=== PATIENT | female | born 1985 | race Caucasian/White ===

== ENCOUNTER 2019-02-03 09:36 | Emergency (ER) | payer SELFPAY ==
--- OUTSIDE RECORDS SUMMARY | ~2019-02-03 | XMS | Encounter Summary ---
Demographics + + + | Address | [address] | | | [place] [address] | + + + | Home Phone | | + + + | Preferred Language | Unknown | + + + | Marital Status | | + + + | Gnosticism Affiliation | 1013 | + + + | Race | Unknown | + + + | Ethnic Group | Unknown | + + + Author + + + | Author | [facility] | | | and [place] | + + + | Organization | [facility] | | | and [place] | + + + | Address | Unknown | + + + | Phone | Unavailable | + + + Support + + + + + | Name | Relationship | Address | Phone | + + + + + | Jozef Lerner | ECON | [address] | | | | [address] [place] | | | | | [address] | | + + + + + Care Team Providers + +------+ + | Care Headmaster/Mistress Name | Role | Phone | + +------+ + | No, Physician | PCP | Unavailable | + +------+ + Reason for Visit + + + | Reason | Comments | + + + | Pelvic Pain | | + + + Encounter Details +--------+ + + + + | Date | Type | Department | Care Team | Description | +--------+ + + + + | 10/20/ | Emergency | [facility] | Joan Myles, | Ruptured ovarian | | 2018 | | [facility] | [facility] [address] | cyst (Primary Dx); | | | | CENTER [address] | [place] | Pelvic pain | | | | [place] | [address] | | | | | [address] | | | | | | [phone] | | | +--------+ + + + + Social History + +-------+ +--------+------+ | Tobacco Use | Types | Packs/Day | Years | Date | | | | | Used | | + +-------+ +--------+------+ | Never Smoker | | | | | + +-------+ +--------+------+ + +---+---+---+ | Smokeless Tobacco: | | | | | Never Used | | | | + +---+---+---+ + + +---------+ + | Alcohol Use | Drinks/Week | oz/Week | Comments | + + +---------+ + | No | | | | + + +---------+ + + + + | Sex Assigned at | Date Recorded | | | | + + + | Not on file | | + + + + + + + | Job Start Date | Occupation | Industry | + + + + | Not on file | Not on file | Not on file | + + + + + + + + | Travel History | Travel Start | Travel End | + + + + + + | No recent travel history available. | + + documented as of this encounter Last Filed Vital Signs + + + + + | Vital Sign | Reading | Time Taken | Comments | + + + + + | Blood Pressure | 93/53 | 10/20/2017 10:31 PM | | | | | PDT | | + + + + + | Pulse | 67 | 10/20/2017 10:31 PM | | | | | PDT | | + + + + + | Temperature | 36.9 C (98.4 F) | 10/20/2017 9:05 PM | | | | | PDT | | + + + + + | Respiratory Rate | 14 | 10/20/2017 9:05 PM | | | | | PDT | | + + + + + | Oxygen Saturation | 99% | 10/20/2017 10:31 PM | | | | | PDT | | + + + + + | Inhaled Oxygen | - | - | | | Concentration | | | | + + + + + | Weight | 86.2 kg (190 lb) | 10/20/2017 9:05 PM | | | | | PDT | | + + + + + | Height | 162.6 cm (5' 4") | 10/20/2017 9:05 PM | | | | | PDT | | + + + + + | Body Mass Index | 32.61 | 10/20/2017 9:05 PM | | | | | PDT | | + + + + + documented in this encounter Medications at Time of Discharge + + + +---------+ + + | Medication | Sig | Dispensed | Refills | Start | End Date | | | | | | Date | | + + + +---------+ + + | FLUoxetine | Take 20 mg by mouth | | 0 | | | | (PROZAC) 20 mg | Daily. Takes prior | | | | | | capsule | to her period every | | | | | | | month. Dose unknown | | | | | + + + +---------+ + + | | Take 1 tablet by | | 0 | | | | HYDROcodone-acetamin | mouth every 6 hours | | | | | | ophen (NORCO) 5-325 | as needed for Pain. | | | | | | mg per tablet | | | | | | + + + +---------+ + + | ibuprofen | Take 800 mg by mouth | | 0 | | | | (ADVIL,MOTRIN) 800 | every 6 hours as | | | | | | MG tablet | needed for Pain. | | | | | + + + +---------+ + + | cefdinir (OMNICEF) | Take 1 capsule by | 20 | 0 | 10/21/19 | | | 300 mg capsule | mouth 2 times daily | capsule | | 18 | 8 | | | for 10 days. | | | | | + + + +---------+ + + documented as of this encounter Plan of Treatment + +------+--------+ + + | Name | Type | Priori | Associated Diagnoses | Date/Time | | | | ty | | | + +------+--------+ + + | ED INFORMATION | KACI | Routin | | 10/20/2017 10:01 PM | | EXCHANGE | | e | | PDT | + +------+--------+ + + documented as of this encounter Procedures + +--------+ + + + | Procedure Name | Priori | Date/Time | Associated Diagnosis | Comments | | | ty | | | | + +--------+ + + + | CBC WITH | STAT | 10/20/2017 | | Results for this | | DIFFERENTIAL | | 9:35 PM | | procedure are in the | | | | PDT | | results section. | + +--------+ + + + | URINALYSIS WITH | STAT | 10/20/2017 | | Results for this | | MICROSCOPIC WITH | | 9:10 PM | | procedure are in the | | CULTURE IF INDICATED | | PDT | | results section. | + +--------+ + + + | HCG, URINE, QUAL | STAT | 10/20/2017 | | Results for this | | | | 9:10 PM | | procedure are in the | | | | PDT | | results section. | + +--------+ + + + documented in this encounter Results CBC with Differential (10/20/2017 9:35 PM PDT) + + + + + + | Component | Value | Ref Range | Performed | Pathologist | | | | | At | Signature | + + + + + + | WBC | 10.7 (H) | 4.3 - 10.4 K/uL | [facility] | | + + + + + + | RBC | 4.86 | 4.12 - 5.30 | [facility] | | | | | M/uL | [facility] | | + + + + + + | Hemoglobin | 14.1 | 12.4 - 15.7 | [facility] | | | | | g/dL | [facility] | | + + + + + + | Hct | 43.8 | 37.7 - 47.0 % | [facility] | | | | [facility] | | + + + + + + | MCV | 90.1 | 82.0 - 97.0 fL | [facility] | | | | [facility] | | + + + + + + | MCH | 29.0 | 27.1 - 32.3 pg | [facility] | | | | [facility] | | + + + + + + | MCHC | 32.2 | 32.0 - 36.9 | [facility] | | | | | g/dL | [facility] | | + + + + + + | RDW-CV | 13.5 | 0.0 - 17.0 % | [facility] | | | | | [facility] | | + + + + + + | Platelet | 225 | 150 - 450 K/uL | [facility] | | | Count | | | [facility] | | + + + + + + | MPV | 10.7 | 9.4 - 12.3 fL | [facility] | | | | | | [facility] | | + + + + + + | % | 64.3 | 42.0 - 76.0 % | [facility] | | | Neutrophils | | | [facility] | | + + + + + + | % | 27.5 | 20.0 - 40.0 % | [facility] | | | Lymphocytes | | | [facility] | | + + + + + + | % Monocytes | 6.6 | 3.0 - 13.0 % | [facility] | | | | | | [facility] | | + + + + + + | % | 0.6 | 0.0 - 7.0 % | [facility] | | | Eosinophils | | | [facility] | | + + + + + + | % Basophils | 0.6 | 0.0 - 2.0 % | [facility] | | | | | [facility] | | + + + + + + | % Immature | 0.4 | 0.0 - 0.5 % | [facility] | | | Granulocyte | | | [facility] | | | s | | | [facility] | | | | | | [facility] | | + + + + + + | Absolute | 6.90 | 2.50 - 8.50 | [facility] | | | Neutrophils | | K/uL | [facility] | [facility] | | [facility] | | + + + + + + | Absolute | 2.95 | 1.00 - 3.80 | [facility] | | | Lymphocytes | | K/uL | [facility] | [facility] | | [facility] | | + + + + + + | Absolute | 0.71 | 0.00 - 0.80 | [facility] | | | Monocytes | | K/uL | [facility] | [facility] | | [facility] | | + + + + + + | Absolute | 0.06 | 0.00 - 0.70 | [facility] | | | Eosinophils | | K/uL | [facility] | [facility] | | + + + + + + | Absolute | 0.06 | 0.00 - 0.20 | [facility] | | | Basophils | | K/uL | [facility] | [facility] | | [facility] | | + + + + + + | Absolute | 0.04 | 0.00 - 0.15 | [facility] | | | Immature | | K/UL | [facility] | | | Granulocyte | | | [facility] | | | s | | | LAB[facility]ATORY | | + + + + + + | % nRBC | 0 | 0 - 0 per 100 | [facility] | | | | | WBC's | [facility] | | | | | | [facility] | | + + + + + + | Absolute | 0.00 | 0.00 - 0.01 | [facility] | | | nRBC | | K/UL | [facility] | | | | | | [facility] | | + + + + + + + + | Specimen | + + | Blood | + + + + + + + | Performing | Address | City/State/Zipcode | Phone Number | | Organization | | | | + + + + + | [facility] | [address] | [place] [address] | [phone] | | [facility] | | | | + + + + + , Urine, Qual (10/20/2017 9:10 PM PDT) + + + + + + | Component | Value | Ref Range | Performed | Pathologist | | | | | At | Signature | + + + + + + | HCG SCREEN, | Negative | Negative | [facility] | | | URINE | | | [facility] | | | | | | [facility] | | + + + + + + + + | Specimen | + + | Urine | + + + + + + + | Performing | Address | City/State/Zipcode | Phone Number | | Organization | | | | + + + + + | [facility] | [address] | [place] [address] | [phone] | | [facility] | | | | + + + + + Urinalysis with Microscopic with Culture if Indicated (10/20/2017 9:10 PM PDT) + + + + + + | Component | Value | Ref Range | Performed | Pathologist | | | | | At | Signature | + + + + + + | Color | Pale Yellow | Pale Yellow, | [facility] | | | | | Yellow | [facility] | [facility] | | + + + + + + | Clarity | Clear | Clear | [facility] | | | | | | [facility] | | + + + + + + | pH, Urine | 6.0 | 5.0 - 7.0 | [facility] | | | | | | [facility] | [facility] | [facility] | | + + + + + + | Specific | 1.010 | 1.003 - 1.030 | [facility] | | | [place] | | | [facility] | [facility] | | + + + + + + | Protein, | Negative | Negative | [facility] | | | Urine | | | [facility] | [facility] | [facility] | | + + + + + + | Blood, | Negative | Negative | [facility] | | | Urine | | | [facility] | [facility] | | + + + + + + | Glucose, | Normal | Normal | [facility] | | | Urine | | | [facility] | | | | | | [facility] | | + + + + + + | Ketones, | Negative | Negative | [facility] | | | Urine | | | [facility] | [facility] | [facility] | | + + + + + + | Bilirubin, | Negative | Negative | [facility] | | | Urine | | | [facility] | [facility] | [facility] | | + + + + + + | Nitrite, | Negative | Negative | [facility] | | | Urine | | | [facility] | | | | | [facility] | | + + + + + + | Leukocyte | Negative | Negative | [facility] | | | Esterase, | | | [facility] | | Urine | | [facility] | | | | | | [facility] | | + + + + + + | Urobilinoge | Normal | 0-1.0 mg/dL | [facility] | | | n, Urine | | | [facility] | | [facility] | | | | | | [facility] | | + + + + + + | WBC UA | None Seen | <=5 /HPF | [facility] | | | | | [facility] | [facility] | [facility] | | + + + + + + | RBC UA | None Seen | <=5 /HPF | [facility] | | | | | [facility] | [facility] | [facility] | | + + + + + + | SQUAMOUS | Moderate (A) | None Seen /LPF | [facility] | | | EPITHELIAL | | | [facility] | | UA | | | [facility] | | | | | | [facility] | | + + + + + + | BACTERIA UA | Few (A) | None Seen /HPF | [facility] | | | | [facility] | [facility] | [facility] | | + + + + + + | URINE | Urine Culture Not | | [facility] | | | COMMENT | Indicated | | [facility] | [facility] | [facility] | | + + + + + + + + | Specimen | + + | Urine - Urine | | specimen obtained by | | clean catch | | procedure (specimen) | + + + + + + + | Performing | Address | City/State/Zipcode | Phone Number | | Organization | | | | + + + + + | [facility] | [address] | [place] [address] | [phone] | | [facility] | | | | + + + + + documented in this encounter Visit Diagnoses + + | Diagnosis | + + | Ruptured ovarian cyst - Primary Other and unspecified ovarian cyst | + + | Pelvic pain | + + documented in this encounter Administered Medications + +--------+ +------+------+------+ | Medication Order | MAR | Action | Dose | Rate | Site | | | Action | Date | | | | + +--------+ +------+------+------+ | cefTRIAXone (ROCEPHIN) | Given | 10/21/19 | 1 g | | | | injection 1 g 1 g, Intravenous, | | 18 9:59 | | | | | ONCE, Guera 10/20/17 at 5, For 1 | | PM PDT | | | | | dose, Indications: Acute | | | | | | | Abdominal Condition | | | | | | + +--------+ +------+------+------+ +---+---+ | | | +---+---+ + +-------+ +-------+---+---+ | ketorolac (TORADOL) injection | Given | 10/21/19 | 30 mg | | | | 30 mg 30 mg, Intravenous, ONCE, | | 18 9:58 | | | | | Guera 10/20/17 at 2144, For 1 dose | | PM PDT | | | | + +-------+ +-------+---+---+ +---+---+ | | | +---+---+ documented in this encounter
--- OUTSIDE RECORDS SUMMARY | ~2019-02-03 | XMS | Encounter Summary ---
Demographics + + + | Address | [address] | | | [place] [address] | + + + | Home Phone | | + + + | Preferred Language | Unknown | + + + | Marital Status | | + + + | Sikh Affiliation | 1013 | + + + | Race | Unknown | + + + | Ethnic Group | Unknown | + + + Author + + + | Author | [facility] | | | and [place] | + + + | Organization | [facility] | | | and [place] | + + + | Address | Unknown | + + + | Phone | Unavailable | + + + Support + + + + + | Name | Relationship | Address | Phone | + + + + + | Jozef Lerner | ECON | [address] | | | | [address], [place] | | | | | [address] | | + + + + + Care Team Providers + +------+ + | Care Scheme Technician Name | Role | Phone | + +------+ + PCP | Unavailable | + +------+ + Encounter Details +--------+ + + + + | Date | Type | Department | Care Team | Description | +--------+ + + + + | 10/29/ | Hospital | [facility] | Candy Crockett MD | | | 2011 | Encounter | [facility] | [address] | | | | | [place] [address] | [place], [place] | | | | | [address] | [address] | | | | | [place] | | | | | | [address] | | | | | | [phone] | | | +--------+ + + + + Social History + +-------+ +--------+------+ | Tobacco Use | Types | Packs/Day | Years | Date | | | | | Used | | + +-------+ +--------+------+ | Never Assessed | | | | | + +-------+ +--------+------+ + + + | Sex Assigned at [...] + + documented as of this encounter Medications at Time of Discharge + + + +---------+ + + | Medication | Sig | Dispensed | Refills | Start | End Date | | | | | | Date | | + + + +---------+ + + | clindamycin | applied to pustular | | 0 | 07/22/19 | | | (CLINDAMAX) 1 % | lesions in groin | | | 12 | 8 | | lotion | | | | | | + + + +---------+ + + | hydrOXYzine | 1 to 2 tablets as | | 0 | 07/22/19 | | | (ATARAX) 25 MG | needed for anxiety. | | | 12 | 8 | | tablet | | | | | | + + + +---------+ + + | minocycline | Take 50 mg by mouth | | 0 | 07/29/19 | | | (DYNACIN) 50 MG | 4 times daily. | | | 12 | 8 | | tablet | | | | | | + + + +---------+ + + | naproxen | 1 to 2 tablets with | | 0 | 07/22/19 | | | (NAPROSYN) 500 mg | food as needed for | | | 12 | 8 | | tablet | pain. | | | | | + + + +---------+ + + documented as of this encounter Plan of Treatment Not on filedocumented as of this encounter Visit Diagnoses Not on filedocumented in this encounter"
--- OUTSIDE RECORDS SUMMARY | ~2019-02-03 | XMS | Encounter Summary ---
Demographics + + + | Address | [address] | | | [place] [address] | + + + | Home Phone | | + + + | Preferred Language | Unknown | + + + | Marital Status | | + + + | Hindu Affiliation | 1013 | + + + | Race | Unknown | + + + | Ethnic Group | Unknown | + + + Author + + + | Author | [facility] | | | and [place] | + + + | Organization | [facility] | | | and [place] | + + + | Address | Unknown | + + + | Phone | Unavailable | + + + Support + + + + + | Name | Relationship | Address | Phone | + + + + + | Jozef Lerner | ECON | [address] | | | | [address], [place] | | | | | [address] | | + + + + + Care Team Providers + +------+ + | Care Sleep Medicine Physician Name | Role | Phone | + +------+ + PCP | Unavailable | + +------+ + Encounter Details +--------+ + + + + | Date | Type | Department | Care Team | Description | +--------+ + + + + | 04/12/ | Abstract | [facility] | [facility]IGRATION [facility] | | | 2012 | | Conversion Location | [facility] | | | | | [phone] | | | +--------+ + + + [...] + + + | Blood Pressure | 118/76 | 07/29/2011 12:00 AM | | | | | PDT | | + + + + + | Pulse | - | - | | + + + + + | Temperature | - | - | | + + + + + | Respiratory Rate | - | - | | + + + + + | Oxygen Saturation | - | - | | + + + + + | Inhaled Oxygen | - | - | | | Concentration | | | | + + + + + | Weight | 91.2 kg (201 lb) | 07/29/2011 12:00 AM | | | | | PDT | | + + + + + | Height | 163.8 cm (5' 4.5") | 07/22/2011 12:00 AM | | | | | PDT | | + + + + + | Body Mass Index | 33.97 | 07/22/2011 12:00 AM | | | | | PDT | | + + + + + documented in this encounter Plan of Treatment Not on filedocumented as of this encounter Visit Diagnoses Not on filedocumented in this encounter
--- OUTSIDE RECORDS SUMMARY | ~2019-02-03 | XMS | Encounter Summary ---
Demographics + + + | Address | [address] | | | [place] [address] | + + + | Home Phone | | + + + | Preferred Language | Unknown | + + + | Marital Status | | + + + | Zoroastrianism Affiliation | 1013 | + + + | Race | Unknown | + + + | Ethnic Group | Unknown | + + + Author + + + | Author | [facility] | | | and [place] | + + + | Organization | [facility] | | | and [place] | + + + | Address | Unknown | + + + | Phone | Unavailable | + + + Support + + + + + | Name | Relationship | Address | Phone | + + + + + | Jozef Lerner | ECON | [address] | | | | | [address] | | | | | [address] | | + + + + + Care Team Providers + +------+ + | Care Cinder Block Mason Name | Role | Phone | + +------+ + PCP | Unavailable | + +------+ + Encounter Details +--------+ + + + + | Date | Type | Department | Care Team | Description | +--------+ + + + + | 09/28/ | Orders Only | [facility] | Gloria Cano | | | 2013 | | [facility] | [address] | | | | | [facility] | [address] | | | | | [address] [place], | [place], [place] | | | | | [place] [address] | [address] | | | | | [phone] | [phone] | | | | | | | | +--------+ + + + [...] Not on filedocumented as of this encounter Procedures + +--------+ + + + | Procedure Name | Priori | Date/Time | Associated Diagnosis | Comments | | | ty | | | | + +--------+ + + + | PAP, LB REFLEX HPV | Routin | 09/28/2013 | | Results for this | | ALL PTH | e | 3:51 PM | | procedure are in the | | | | PDT | | results section. | + +--------+ + + + documented in this encounter Results Pap, Lb Rflx HPV All Pth (09/28/2013 3:51 PM PDT) + + | Specimen | + + | | + + + + + | Narrative | Performed At | + + + | .D: 14 : 00:00am .T: [facility] Cytology Report .PV: [facility] Ordering | EXTERNAL LAB | | Provider Gloria CANO M.D. @W/- X/ MARIS Provider LG - | | | [facility] /W Collected Date [id number] Received | | | Date 20131002 Completed Date 20131002 Specimen | | | Source: Liquid base - cervical Number of Slides: 10 | | | LMP Date: [id number] Menstrual Status Second Half of Cycle | | | Clinical History: Cytopathologic Diagnosis: | | | Negative for Intraepithelial Lesion or Malignancy Specimen | | | Adequacy: Satisfactory for evaluation. Transformation | | | zone component present Marked inflammation Comment: | | | Repeat smear at your discretion. Specimen processed | | | successfully by [employer] Slide Cull Grader, [facility], | | | [facility]. History: [id number] 04/25/02 Within | | | normal limits. [id number] 03/05/02 Within normal | | | limits. [id number] 05/05/01 Within normal limits. | | | [id number] 01/02/01 Within normal limits. | | | [id number] 09/23/99 Within normal limits. Disclaimer | | | The pap smear is not a diagnostic procedure and should not be used | | | as the sole means to detect cervical cancer. It is only a screening | | | procedure to aid in the detection of cervical cancer. Both | | | false-negative and false-positive results have been experienced. | | | User 1 Lab Ordering Provider: | | | Gloria Cano M.D. @W/- X/, [facility] Accession: | | | [id number] # SIGNED BY GLORIA CANO MD, (URBAN)10/04/2013 | | | 04:06PM | | + + + + +---------+ + + | Performing | Address | City/State/Zipcode | Phone Number | | Organization | | | | + +---------+ + + | EXTERNAL LAB | | | | + +---------+ + + documented in this encounter Visit Diagnoses Not on filedocumented in this encounter"
--- OUTSIDE RECORDS SUMMARY | ~2019-02-03 | XMS | Encounter Summary ---
Demographics + + + | Address | [address] | | | [place] [address] | + + + | Home Phone | | + + + | Preferred Language | Unknown | + + + | Marital Status | | + + + | Taoist Affiliation | 1013 | + + + | Race | Unknown | + + + | Ethnic Group | Unknown | + + + Author + + + | Author | [facility] | | | and [place] | + + + | Organization | [facility] | | | and [...] [address] | | | | | [address] | | + + + + + Care Team Providers + +------+ + | Care Senior Manufacturing Engineer Name | Role | Phone | + +------+ + PCP | Unavailable | + +------+ + Encounter Details +--------+ + + + + | Date | Type | Department | Care Team | Description | +--------+ + + + + | 07/05/ | Hospital | [facility] | Javid Marks | | | 2013 | Encounter | [facility] | [address] | | | | | [address] | [address] | | | | | [place], [place] | [place] | | | | | [address] | [address] | | | | | [phone] | [phone] | | | | | | | [...]
--- OUTSIDE RECORDS SUMMARY | ~2019-02-03 | XMS | Clinical Summary ---
Demographics + + + | Address | [address] | | | [place] [address] | + + + | Home Phone | | + + + | Preferred Language | Unknown | + + + | Marital Status | | + + + | Christianity Affiliation | 1013 | + + + | Race | Unknown | + + + | Ethnic Group | Unknown | + + + Author + + + | Author | [facility] | | | and [place] | + + + | Organization | [facility] | | | and [...] [address], [place] | | | | | [address] | | + + + + + Care Team Providers + +------+ + | Care Freezer Person Name | Role | Phone | + +------+ + | No, Physician | PCP | Unavailable | + +------+ + Allergies No Known Allergies Medications + + + +---------+------+------+-------+ | Medication | Sig | Dispensed | Refills | Star | End | Statu | | | | | | t | Date | s | | | | | | Date | | | + + + +---------+------+------+-------+ | | Take 1 tablet by | | 0 | | | Activ | | HYDROcodone-acetamin | mouth every 6 hours | | | | | e | | ophen (NORCO) 5-325 | as needed for Pain. | | | | | | | mg per tablet | | | | | | | + + + +---------+------+------+-------+ | ibuprofen | Take 800 mg by mouth | | 0 | | | Activ | | (ADVIL,MOTRIN) 800 | every 6 hours as | | | | | e | | MG tablet | needed for Pain. | | | | | | + + + +---------+------+------+-------+ | FLUoxetine | Take 20 mg by mouth | | 0 | | | Activ | | (PROZAC) 20 mg | Daily. Takes prior | | | | | e | | capsule | to her period every | | | | | | | | month. Dose unknown | | | | | | + + + +---------+------+------+-------+ Active Problems + + + | Problem | Noted Date | + + + | ANXIETY | 07/29/2011 | + + + | HEADACHE | 07/22/2011 | + + + + + | Overview: ICD-10 Record update | + + + + + | MYALGIA | 07/22/2011 | + + + | FATIGUE | 07/22/2011 | + + + | HEAT INTOLERANCE | 07/22/2011 | + + + | DISTURBANCE OF SKIN SENSATION | 07/22/2011 | + + + Social History + +-------+ [...] recent travel history available. | + + Last Filed Vital Signs + + + [...] | | + + + + + Plan of Treatment + + + + + | Health Maintenance | Due Date | Last Done | Comments | + + + + + | Vaccine: | | | | | Dtap/Tdap/Td (1 - | 3 | | | | Tdap) | | | | + + + + + | Cervical Cancer | | 09/28/2013 | | | Screening (Pap) | 9 | | | + + + + + | Vaccine: Influenza | | | | | (#1) | 9 | | | + + + + + Results Not on filefrom Last 3 Months Insurance +---------+--------+ +--------+ +---------+------+ | Payer | Benefi | Subscriber | Effect | Phone | Address | Type | | | t Plan | ID | geeta | | | | | | / | | Dates | | | | | | Group | | | | | | +---------+--------+ +--------+ +---------+------+ | [place] [id number] | 08/13/19 | [phone] | | [place] | | [place] | 1 | 18-Pre | 9 | | | | | | | sent | | | | +---------+--------+ +--------+ +---------+------+ + +--------+ +--------+ + + | Guarantor Name | Accoun | Relation to | Date | Phone | Billing Address | | | t Type | Patient | of | | | | | | | | | | + +--------+ +--------+ + + | Elvira Lerner | Person | Self | [birth year] | [address] | | [place] | al/[place] | | 1986 | [phone] | [place] [address] | | | matthias | | | 6 (Home) | | + +--------+ +--------+ + + Advance Directives + + + + + | Type | Date Recorded | Patient | Explanation | | | | Wrapper Caser | | + + + + + | Power of | | | | | Dimension Stone Quarry Supervisor | | | | + + + + + | Advance | 10/20/2017 7:46 | | | | Directive | PM | | | + + + + +
--- OUTSIDE RECORDS SUMMARY | ~2019-02-03 | XMS | Encounter Summary ---
Demographics + + + | Address | [address] | | | [place] [address] | + + + | Home Phone | | + + + | Preferred Language | Unknown | + + + | Marital Status | | + + + | Mandaen Affiliation | 1013 | + + + | Race | Unknown | + + + | Ethnic Group | Unknown | + + + Author + + + | Author | [facility] | | | and [place] | + + + | Organization | [facility] | | | [...] [address] [place] | | | | | [address] | | + + + + + Care Team Providers + +------+ + | Care On Site Nurse Name | Role | Phone | + +------+ + PCP | Unavailable | + +------+ + Encounter Details +--------+ + + + + | Date | Type | Department | Care Team | Description | +--------+ + + + + | 10/23/ | Hospital | [facility] | Javid Marks | | | 2013 | Encounter | HOSPITAL MED SURG | [address] | | | | | [address] | [address] | | | | | [place], [place] | [place], [place] | | | | | [address] | [address] | | | | | [phone] | [phone] | | | | | | | [...] | + +--------+ + + + | POC GLUCOSE, | Routin | 10/23/2013 | | Results for this | | RAPIDPOINT | e | 7:32 AM | | procedure are in the | | | | PDT | | results section. | + +--------+ + + + | , SERUM, | Routin | 10/23/2013 | | Results for this | | QUAL | e | 7:03 AM | | procedure are in the | | | | PDT | | results section. | + +--------+ + + + documented in this encounter Results POC Glucose, Rapidpoint (10/23/2013 7:32 AM PDT) + +-------+ + + + | Component | Value | Ref Range | Performed | Pathologist | | | | | At | Signature | + +-------+ + + + | Glucose, | 76 | 70 - 110 mg/dL | EXTERNAL | | | POC | | | LAB | | + +-------+ + + + + + | Specimen | + + | | + + + +---------+ + + | Performing | Address | City/State/Zipcode | Phone Number | | Organization | | | | + +---------+ + + | EXTERNAL LAB | | | | + +---------+ + + , Serum, Qual (10/23/2013 7:03 AM PDT) + + + + + + | Component | Value | Ref Range | Performed | Pathologist | | | | | At | Signature | + + + + + + | HCG | NEGATIVE | NEGATIVE | EXTERNAL | | | QUALITATIVE | | | LAB | | + + + + + + | Internal QC | POSITIVE | POSITIVE | EXTERNAL | | | | | | LAB | | + + + + + + + + | Specimen | + + | | + + + +---------+ + + | Performing | Address | City/State/Zipcode | Phone Number | | Organization | | | | + +---------+ + + | EXTERNAL LAB | | | | + +---------+ + + documented in this encounter Visit Diagnoses Not on filedocumented in this encounter"
--- OUTSIDE RECORDS SUMMARY | ~2019-02-03 | XMS | Encounter Summary ---
Demographics + + + | Address | [address] | | | [place] [address] | + + + | Home Phone | | + + + | Preferred Language | Unknown | + + + | Marital Status | | + + + | Amish Affiliation | 1013 | + + + | Race | Unknown | + + + | Ethnic Group | Unknown | + + + Author + + + | Author | [facility] | | | and [place] | + + + | Organization | [facility] | | | [...] [address], [place] | | | | | [address] | | + + + + + Care Team Providers + +------+ + | Care Manager Workers Compensation Name | Role | Phone | + +------+ + PCP | Unavailable | + +------+ + Encounter Details +--------+ + + + + | Date | Type | Department | Care Team | Description | +--------+ + + + + | 06/23/ | Hospital | [facility] | Livan Parrish MD | | | 2012 - | Encounter | FAMILY EMERGENCY | [address] | | | | | [place] [address] | [place] [address] | | | 06/24/ | | [place] | [phone] | | | 2012 | | [place] | | | | | | [address] | | | | | | [phone] | | | +--------+ + + + [...]
--- OUTSIDE RECORDS SUMMARY | ~2019-02-03 | XMS | Encounter Summary ---
Demographics + + + | Address | [address] | | | [place] [address] | + + + | Home Phone | | + + + | Preferred Language | Unknown | + + + | Marital Status | | + + + | Confucianist Affiliation | 1013 | + + + | Race | Unknown | + + + | Ethnic Group | Unknown | + + + Author + + + | Author | [facility] | | | and [place] | + + + | Organization | [facility] | | | [...] [address] [place] | | | | | [address] | | + + + + + Care Team Providers + +------+ + | Care Drafter Landscape Name | Role | Phone | + +------+ + PCP | Unavailable | + +------+ + Encounter Details +--------+ + + + + | Date | Type | Department | Care Team | Description | +--------+ + + + + | 09/10/ | Hospital | [facility] | Javid Marks | | | 2013 | Encounter | HOSPITAL OBSTETRICS | [address] | | | | | [address] | [address] | | | | | [place], [place] | [place], [place] | | | | | [address] | [address] | | | | | [phone] | [phone] | | | | | | | [...]
--- OUTSIDE RECORDS SUMMARY | ~2019-02-03 | XMS | Encounter Summary ---
Demographics + + + | Address | [address] | | | [place] [address] | + + + | Home Phone | | + + + | Preferred Language | Unknown | + + + | Marital Status | | + + + | Yarsani Affiliation | 1013 | + + + | Race | Unknown | + + + | Ethnic Group | Unknown | + + + Author + + + | Author | [facility] | | | and [place] | + + + | Organization | [facility] | | | and [...] [address], [place] | | | | | [address] | | + + + + + Care Team Providers + +------+ + | Care Practical Nurse Clinical Coordinator Name | Role | Phone | + +------+ + PCP | Unavailable | + +------+ + Encounter Details +--------+ + + + + | Date | Type | Department | Care Team | Description | +--------+ + + + + | 01/05/ | Hospital | [facility] | Adrian Lopes, | | | 2002 - | Encounter | FAMILY EMERGENCY | [address] | | | | [place] [address] | [facility] | | | 01/06/ | [place] | [place] [address] | | | 2002 | | [place], [place] | [phone] | | | | | [address] | | | | | | [phone] | | | +--------+ + + + [...]
--- OUTSIDE RECORDS SUMMARY | ~2019-02-03 | XMS | Encounter Summary ---
Demographics + + + | Address | [address] | | | [place] [address] | + + + | Home Phone | | + + + | Preferred Language | Unknown | + + + | Marital Status | | + + + | Catholic Affiliation | 1013 | + + + | Race | Unknown | + + + | Ethnic Group | Unknown | + + + Author + + + | Author | [facility] | | | and [place] | + + + | Organization | [facility] | | | [...] [address] | | | | | [address] | | + + + + + Care Team Providers + +------+ + | Care Check Cashier Name | Role | Phone | + +------+ + PCP | Unavailable | + +------+ + Encounter Details +--------+ + + + + | Date | Type | Department | Care Team | Description | +--------+ + + + + | 04/23/ | Hospital | [facility] | Javid Marks | | | 2014 | Encounter | HOSPITAL OBSTETRICS | [address] | | | | | [address] | [address] | | | | | [place], [place] | [place], [place] | | | | | [address] | [address] | | | | | [phone] | [phone] | | | | | | | [...]
--- OUTSIDE RECORDS SUMMARY | ~2019-02-03 | XMS | Encounter Summary ---
Demographics + + + | Address | [address] | | | [place] [address] | + + + | Home Phone | | + + + | Preferred Language | Unknown | + + + | Marital Status | | + + + | Presybeterian Affiliation | 1013 | + + + | Race | Unknown | + + + | Ethnic Group | Unknown | + + + Author + + + | Author | [facility] | | | and [place] | + + + | Organization | [facility] | | [...] [address] | | | | | [address] [place] | | | | | [address] | | + + + + + Care Team Providers + +------+ + | Care [employer] Team Member Name | Role | Phone | + +------+ + | No, Physician | PCP | Unavailable | + +------+ + Reason for Visit + + + | Reason | Comments | + + + | Follow-up | | + + + Encounter Details +--------+ + + + + | Date | Type | Department | Care Team | Description | +--------+ + + + + | 10/22/ | Telephone | [facility] | No, Physician | Follow-up | | 2018 | | HOSPITAL EMERGENCY | | | | | | CENTER [address] | | | | | | [address] [place], [place] | | | | | | [address] | | | | | | [phone] | | | +--------+ + + + [...]
--- OUTSIDE RECORDS SUMMARY | ~2019-02-03 | XMS | Encounter Summary ---
Demographics + + + | Address | [address] | | | [place] [address] | + + + | Home Phone | | + + + | Preferred Language | Unknown | + + + | Marital Status | | + + + | Restorationist Affiliation | 1013 | + + + | Race | Unknown | + + + | Ethnic Group | Unknown | + + + Author + + + | Author | [facility] | | | and [place] | + + + | Organization | [facility] | | [...] [address], [place] | | | | | [address] | | + + + + + Care Team Providers + +------+ + | Care Medical Examiner Name | Role | Phone | + +------+ + PCP | Unavailable | + +------+ + Encounter Details +--------+ + + + + | Date | Type | Department | Care Team | Description | +--------+ + + + + | 06/27/ | [facility] | [facility] | Bandar Bajwa MD | | | 2012 | Encounter | FAMILY EMERGENCY | [address] | | | | | [place] [address] | [place], [place] | | | | | [place] | [address] | | | | | [place] | | | | | | [address] | | | | | | [phone] | | | +--------+ + + + [...]
--- OUTSIDE RECORDS SUMMARY | ~2019-02-03 | XMS | Encounter Summary ---
Demographics + + + | Address | [address] | | | [place] [address] | + + + | Home Phone [...] [address] | | | | | [address] [place] | | | | | [address] | | + + + + + Care Team Providers + +------+ + | Care Rod Puller And Coiler Name | Role | Phone | + +------+ + | No, Physician | PCP | Unavailable | + +------+ + Encounter Details +--------+ + + + + | Date | Type | Department | Care Team | Description | +--------+ + + + + | 10/20/ | Emergency | [facility] | | | | 2017 | | HOSPITAL EMERGENCY | | | | | | CENTER [address] | | | | | | [place] | | | | | | [address] | | | | | | [phone] | | | +--------+ + + + [...] | KACI | Routin | | 10/20/2017 6:28 PM | | EXCHANGE | | e | | PDT | + +------+--------+ + + documented as of this encounter Procedures + +--------+ + + + | Procedure Name | Priori | Date/Time | Associated Diagnosis | Comments | | | ty | | | | + +--------+ + + + | ED INFORMATION | Routin | 10/20/2017 | | | | EXCHANGE | e | 6:28 PM | | | | | | PDT | | | + +--------+ + + + +---+--------+ | | | | | Proced | | | ure | | | Note - | | | Jorge, | | | Lab In | | | | | | Hlseve | | | n - | | | 10/20/ | | | 2018 | | | 6:29 | | | PM PDT | | | | | | Format | | | ting | | | of | | | this | | | note | | | might | | | be | | | differ | | | ent | | | from | | | the | | | origin | | | al.JORGE | | | E?NOTI | | | FICATI | | | ON?/ | | | | | | 8 | | | 18:27? | | | JUANCARLOS | | | SON, | | | DENNY | | | | | | G?MRN: | | | | | | [id number] | | | [id number] | | | ecurit | | | y | | | Events | | | No | | | recent | | | | | | Securi | | | ty | | | Events | | | | | | curren | | | tly on | | | | | | fileED | | | Care | | | Guidel | | | inesTh | | | ere | | | are | | | curren | | | tly no | | | ED | | | Care | | | Guidel | | | jhonny | | | in | | | KACI | | | for | | | this | | | patien | | | t. | | | Please | | | check | | | your | | | facili | | | ty's | | | medica | | | l | | | record | | | s | | | system | | | .Crite | | | [place] | | | met 2 | | | | | | Facili | | | ties | | | In 90 | | | DaysCa | | | re | | | Provid | | | ersEDI | | | E has | | | no | | | care | | | provid | | | ers on | | | | | | record | | | at | | | this | | | time. | | | Recent | | | | | | Emerge | | | ncy | | | Depart | | | ment | | | Visit | | | Summar | | | yAdmit | | | Date | | | Facili | | | ty | | | City | | | State | | | Type | | | Major | | | Type | | | Diagno | | | ses or | | | Chief | | | | | | Compla | | | int | | | Aug 9, | | | 2018 | | | [place] | | | [place] | | | [place] | [place] | | | [place] | | | Emerge | | | ncy | | | Emerge | | | ncy | | | | | | Abdomi | | | nal | | | pain | | | Saji | | | 31, | | | 2018 | | | [facility] | | | [facility] | | | mary | | | [facility] | | | [place] | | | | | | [place] | | | [place] | | | Emerge | | | ncy | | | Emerge | | | ncy | | | 0. | | | ABD | | | PAIN | | | Apr | | | 19, | | | 2018 | | | [facility] | | | [facility] | | | mary | | | [facility] | | | nt[place] | | | | | | [place] | | | [place] | | | Emerge | | | ncy | | | Emerge | | | ncy | | | 0. | | | SORE | | | THROAT | | | , | | | FEVER, | | | N/V | | | Recent | | | | | | Inpati | | | ent | | | Visit | | | Summar | | | yNo | | | record | | | ed | | | inpati | | | ent | | | visits | | | . E.D. | | | Visit | | | Count | | | (12 | | | mo.)Fa | | | cility | | | | | | Visits | | | St. | | | [facility] | | | mary | | | Medica | | | l | | | Center | | | -[place] | | | io 2 | | | [place] | | | [facility] | | | | | | Hospit | | | al 1 | | | Total | | | 3 | | | Note: | | | Visits | | | | | | indica | | | te | | | total | | | known | | | visits | | | . | | | PDMP | | | Report | | | PDMP | | | report | | | does | | | not | | | meet | | | criter | | | ia.The | | | above | | | | | | inform | | | ation | | | is | | | provid | | | ed for | | | the | | | sole | | | purpos | | | e of | | | patien | | | t | | | treatm | | | ent. | | | Use of | | | this | | | inform | | | ation | | | beyond | | | the | | | terms | | | of | | | Data | | | Sharin | | | g | | | Memora | | | ndum | | | of | | | Unders | | | tandin | | | g and | | | Licens | | | e | | | Agreem | | | ent is | | | | | | prohib | | | ited. | | | In | | | certai | | | n | | | cases | | | not | | | all | | | visits | | | may | | | be | | | repres | | | ented. | | | | | | Consul | | | t the | | | aforem | | | ention | | | ed | | | facili | | | ties | | | for | | | additi | | | onal | | | inform | | | ation. | | | ? | | | 2018 | | | Collec | | | tive | | | Medica | | | l | | | Techno | | | logies | | | , Inc[employer] | | | - | | | [place] | | | [place] | | | [place], | | | [place] - | | | [email or web address] | | | ollect | | | ivemed | | | icalte | | | [email or web address] | | | | +---+--------+ documented in this encounter Visit Diagnoses Not on filedocumented in this encounter"
--- OUTSIDE RECORDS SUMMARY | ~2019-02-03 | XMS | Encounter Summary ---
Demographics + + + | Address | [address] | | | [place] [address] | + + + | Home Phone | | + + + | Preferred Language | Unknown | + + + | Marital Status | | + + + | Gnosticism Affiliation | 1013 | + + + | Race | Unknown | + + + | Ethnic Group | Unknown | + + + Author + + + | Author | [facility] | | | and [place] | + + + | Organization | [facility] | | [...] [address], [place] | | | | | [address] | | + + + + + Care Team Providers + +------+ + | Care Appellate Law Clerk Name | Role | Phone | + [...] [address] | | | | | [place] [address] | [facility] | | | 01/06/ | [place] | [place] [address] | | | 2004 | | [place], [place] | [phone] | | | | | [address] | | | | | | [phone] | | | +--------+ + + + [...]
--- OUTSIDE RECORDS SUMMARY | ~2019-02-03 | XMS | Encounter Summary ---
Demographics + + + | Address | [address] | | | [place] [address] | + + + | Home Phone | | + + + | Preferred Language | Unknown | + + + | Marital Status | | + + + | Rastafari Affiliation | 1013 | + + + | Race | Unknown | + + + | Ethnic Group | Unknown | + + + Author + + + | Author | [facility] | | | and [place] | + + + | Organization | [facility] | | [...] [address] [place] | | | | | [address] | | + + + + + Care Team Providers + +------+ + | Care Vice President [employer] Name | Role | Phone | + [...] [place] | | | | | | [address] | | | | | | [phone] | | | +--------+ + + + [...]
--- OUTSIDE RECORDS SUMMARY | ~2019-02-03 | XMS | Encounter Summary ---
Demographics + + + | Address | [address] | | | [place] [address] | + + + | Home Phone | | + + + | Preferred Language | Unknown | + + + | Marital Status | | + + + | Yazidi Affiliation | 1013 | + + + | Race | Unknown | + + + | Ethnic Group | Unknown | + + + Author + + + | Author | [facility] | | | and [place] | + + + | Organization | [facility] | | | [...] [address] [place] | | | | | [address] | | + + + + + Care Team Providers + +------+ + | Care Social Media Specialist Name | Role | Phone | + +------+ + PCP | Unavailable | + +------+ + Encounter Details +--------+ + + + + | Date | Type | Department | Care Team | Description | +--------+ + + + + | 04/14/ | [facility] | [facility] | Natasha Bob | | | 2016 | Encounter | HOSPITAL NURSERY | [address] | | | | | [address] | [place] | | | | | [place] | [address] | | | | | [address] | [phone] | | | | | [phone] | | | +--------+ + + + [...]
--- OUTSIDE RECORDS SUMMARY | ~2019-02-03 | XMS | Encounter Summary ---
Demographics + + + | Address | [address] | | | [place] [address] | + + + | Home Phone | | + + + | Preferred Language | Unknown | + + + | Marital Status | | + + + | Latter Day Affiliation | 1013 | + + + | Race | Unknown | + + + | Ethnic Group | Unknown | + + + Author + + + | Author | [facility] | | | and [place] | + + + | Organization | [facility] | | [...] [address] [place] | | | | | [address] | | + + + + + Care Team Providers + +------+ + | Care International Guest Coordinator Name | Role | Phone | + +------+ + PCP | Unavailable | + +------+ + Encounter Details +--------+ + + + + | Date | Type | Department | Care Team | Description | +--------+ + + + + | 10/11/ | [facility] | [facility] | Jerrell Ivan | | | 2002 | Encounter | FAMILY LABOR AND | MD | | | | | [address] | | | | | | [place] | | | | | | [place] | | | | | | [address] | | | | | | [phone] | | | +--------+ + + + [...]
--- OUTSIDE RECORDS SUMMARY | ~2019-02-03 | XMS | Encounter Summary ---
Demographics + + + | Address | [address] | | | [place] [address] | + + + | Home Phone | | + + + | Preferred Language | Unknown | + + + | Marital Status | | + + + | Mandaeism Affiliation | 1013 | + + + | Race | Unknown | + + + | Ethnic Group | Unknown | + + + Author + + + | Author | [facility] | | | and [place] | + + + | Organization | [facility] | | | [...] [address] | | | | | [address] | | + + + + + Care Team Providers + +------+ + | Care Director Of Field Service Name | Role | Phone | + +------+ + PCP | Unavailable | + +------+ + Encounter Details +--------+ + + + + | Date | Type | Department | Care Team | Description | +--------+ + + + + | 09/28/ | Hospital | [facility] | Javid Marks | | | 2013 | Encounter | HOSPITAL LABORATORY | [address] | | | | | [address] | [address] | | | | | [place], [place] | [place], [place] | | | | | [address] | [address] | | | | | [phone] | [phone] | | | | | | | [...] + +--------+ + + + | CBC W/AUTO | Routin | 09/28/2013 | | Results for this | | DIFFERENTIAL | e | 2:43 PM | | procedure are in the | | | | PDT | | results section. | + +--------+ + + + documented in this encounter Results CBC w/ Auto Differential (09/28/2013 2:43 PM PDT) + +-------+ + + + | Component | Value | Ref Range | Performed | Pathologist | | | | | At | Signature | + +-------+ + + + | WBC | 8.6 | 4.3 - 10.4 | EXTERNAL | | | | | 1000/mm3 | LAB | | + +-------+ + + + | RBC | 4.88 | 4.12 - 5.30 | EXTERNAL | | | | | mil/mm3 | LAB | | + +-------+ + + + | HGB, | 13.9 | 12.4 - 15.7 | EXTERNAL | | | External | | g/dL | LAB | | + +-------+ + + + | HCT, | 42.1 | 37.7 - 47.0 % | EXTERNAL | | | External | | | LAB | | + +-------+ + + + | MCV | 86 | 82 - 97 fl | EXTERNAL | | | | | | LAB | | + +-------+ + + + | MCH | 28.5 | 27.1 - 32.3 pg | EXTERNAL | | | | | | LAB | | + +-------+ + + + | MCHC | 33 | 32.0 - 36.9 | EXTERNAL | | | | | g/dL | LAB | | + +-------+ + + + | RDW-CV | 13.9 | <=17.0 % | EXTERNAL | | | | | | LAB | | + +-------+ + + + | RDW-SD | 43 | 34.0 - 57.0 fL | EXTERNAL | | | | | | LAB | | + +-------+ + + + | Platelet | 227 | 150 - 450 | EXTERNAL | | | Count | | 1000/mm3 | LAB | | | Plasma | | | | | + +-------+ + + + | MPV | 11 | 9.4 - 12.3 FL | EXTERNAL | | | | | | LAB | | + +-------+ + + + | % Segmented | 59.1 | 42.0 - 76.0 % | EXTERNAL | | | | | | LAB | | | Neutrophils | | | | | + +-------+ + + + | % | 31.1 | 29.0 - 49.0 % | EXTERNAL | | | Lymphocytes | | | LAB | | + +-------+ + + + | % Monocytes | 8.4 | 3.0 - 13.0 % | EXTERNAL | | | | | | LAB | | + +-------+ + + + | % | 0.9 | 0.0 - 7.0 % | EXTERNAL | | | Eosinophils | | | LAB | | + +-------+ + + + | % Basophils | 0.5 | 0.0 - 2.0 % | EXTERNAL | | | | | | LAB | | + +-------+ + + + | Absolute | 5.05 | 2.50 - 8.50 | EXTERNAL | | | Neutrophils | | 1000/mm3 | LAB | | + +-------+ + + + | Absolute | 2.66 | 1.00 - 3.80 | EXTERNAL | | | Lymphocytes | | 1000/mm3 | LAB | | + +-------+ + + + | Absolute | 0.72 | 0.00 - 0.80 | EXTERNAL | | | Monocytes | | 1000/mm3 | LAB | | + +-------+ + + + | Absolute | 0.08 | 0.00 - 0.70 | EXTERNAL | | | Eosinophils | | 1000/mm3 | LAB | | + +-------+ + + + | Absolute | 0.04 | 0.00 - 0.20 | EXTERNAL | | | Basophils | | 1000/mm3 | LAB | | + +-------+ + + + | SLIDE | NO | | EXTERNAL | | | REVIEWED | | | LAB | | + [...]
--- OUTSIDE RECORDS SUMMARY | ~2019-02-03 | XMS | Encounter Summary ---
Demographics + + + | Address | [address] | | | [place] [address] | + + + | Home Phone | | + + + | Preferred Language | Unknown | + + + | Marital Status | | + + + | Confucianism Affiliation | 1013 | + + + | Race | Unknown | + + + | Ethnic Group | Unknown | + + + Author + + + | Author | [facility] | | | and [place] | + + + | Organization | [facility] | | [...] [address], [place] | | | | | [address] | | + + + + + Care Team Providers + +------+ + | Care Survey Chief Name | Role | Phone | + +------+ + PCP | Unavailable | + +------+ + Encounter Details +--------+ + + + + | Date | Type | Department | Care Team | Description | +--------+ + + + + | 06/03/ | Orders Only | [facility] | Conversion | | | 2003 | [facility] | Transaction, | | | | | LABORATORY [address] | Provider Unknown | | | | | [address] | [phone] | | | | | [address] | | | | | | [phone] | | | +--------+ + + + [...] | + +--------+ + + + | SURGICAL PATHOLOGY | Routin | 06/04/2003 | | Results for this | | EXAM | e | 8:36 AM | | procedure are in the | | | | PST | | results section. | + +--------+ + + + documented in this encounter Results Surgical Pathology Exam (06/04/2003 8:36 AM PST) + + | Specimen | + + | | + + + + + | Narrative | Performed At | + + + | SURGICAL PATHOLOGY REPORT | [facility] | | Date Taken: 06/04/2003 Date Received: | | | 06/05/2003 Completed: 06/06/2003 Physician: Copy to: | | | DIAGNOSIS: Right upper back, lateral: Intradermal nevus. Jensen Thrasher | | | Liz Matos Electronic signature GROSS DESCRIPTION: The | | | specimen labeled "right upper back lateral" is received in formalin | | | and consists of two ovoid rubbery fragments of banda tissue, each | | | measuring 0.6 x 0.5 x 0.4 cm in greatest dimension. One fragment is | | | marked with ink; each fragment is bisected and submitted together in | | | a single block. ([place]) 1: [address] | | [place] [address] or | | | Testing performed at: [facility] | | | Laboratory Ole Shafer M.D., Director [address] [place] [address] [address] | | | [address] [place] [address] | | + + + + + + + + | Performing | Address | City/State/Zipcode | Phone Number | | Organization | | | | + + + + + | [facility] | [address] | [place] [address] | | | [facility] | | | | | LABORATORY | | | | + + + + + | [place] | | | | + + + + + documented in this encounter Visit Diagnoses Not on filedocumented in this encounter
--- OUTSIDE RECORDS SUMMARY | ~2019-02-03 | XMS | Encounter Summary ---
Demographics + + + | Address | [address] | | | [place] [address] | + + + | Home Phone | | + + + | Preferred Language | Unknown | + + + | Marital Status | | + + + | Hoahaoism Affiliation | 1013 | + + + | Race | Unknown | + + + | Ethnic Group | Unknown | + + + Author + + + | Author | [facility] | | | and [place] | + + + | Organization | [facility] | | | [...] [address] | | | | | [address] | | + + + + + Care Team Providers + +------+ + | Care Quickbooks Bookkeeper Name | Role | Phone | + [...] [place], [place] | | | | | [address] | [address] | | | | | [phone] | | | | | | | [...]
--- OUTSIDE RECORDS SUMMARY | ~2019-02-03 | XMS | Encounter Summary ---
Demographics + + + | Address | [address] | | | [place] [address] | + + + | Home Phone | | + + + | Preferred Language | Unknown | + + + | Marital Status | | + + + | Yazidi Affiliation | 1013 | + + + | Race | Unknown | + + + | Ethnic Group | Unknown | + + + Author + + + | Author | [facility] | | | and [place] | + + + | Organization | [facility] | | [...] [address]OX | | | | | [address] | | | | | [address] | | + + + + + Care Team Providers + +------+ + | Care Lithographic Retoucher Apprentice Name | Role | Phone | + +------+ + PCP | Unavailable | + +------+ + Encounter Details +--------+ + + + + | Date | Type | Department | Care Team | Description | +--------+ + + + + | 10/25/ | Hospital | [facility] | Jerrell Ivan | | | 2002 - | Encounter | [facility] | MD | | | | | [address] | | | | 10/26/ | [address] | | | | 2002 | | [place] | | | | | | [address] | | | | | | [phone] | | | +--------+ + + + [...]
--- OUTSIDE RECORDS SUMMARY | ~2019-02-03 | XMS | Encounter Summary ---
Demographics + + + | Address | [address] | | | [place] [address] | + + + | Home Phone | | + + + | Preferred Language | Unknown | + + + | Marital Status | | + + + | Lutheran Affiliation | 1013 | + + + | Race | Unknown | + + + | Ethnic Group | Unknown | + + + Author + + + | Author | [facility] | | | and [place] | + + + | Organization | [facility] | | | [...] [address] | | | | | [address] | | + + + + + Care Team Providers + +------+ + | Care Film Sorter Name | Role | Phone | + +------+ + PCP | Unavailable | + +------+ + Encounter Details +--------+ + + + + | Date | Type | Department | Care Team | Description | +--------+ + + + + | 09/10/ | Hospital | [facility] | aJvid Marks | | | 2013 | Encounter | HOSPITAL OBSTETRICS | [address] | | | | | [address] | [address] | | | | | [place], [place] | [place], [place] | | | | | [address] | [address] | | | | | [phone] | [phone] | | | | | | | [...]
--- OUTSIDE RECORDS SUMMARY | ~2019-02-03 | XMS | Encounter Summary ---
Demographics + + + | Address | [address] | | | [place] [address] | + + + | Home Phone | | + + + | Preferred Language | Unknown | + + + | Marital Status | | + + + | Latter Day Affiliation | 1013 | + + + | Race | Unknown | + + + | Ethnic Group | Unknown | + + + Author + + + | Author | [facility] | | | and [place] | + + + | Organization | [facility] | | [...] [address] [place] | | | | | [address] | | + + + + + Care Team Providers + +------+ + | Care Inspector Hairspring Name | Role | Phone | + [...] | 2018 | | HOSPITAL EMERGENCY | COMPILATION CLERK [address] | cyst (Primary Dx); | | | | CENTER [address] | [place] | Pelvic pain | | | | [place] | [address] | | | | | [address] | | | | | | [phone] | | | +--------+ + + + [...] + + | [facility] | [address] | [place] [address] | [phone] | | HOSPITAL LABORATORY | | | [...] + + | [facility] | [address] | [place] [address] | [phone] | | HOSPITAL LABORATORY | | | [...] - 1.030 | [place] | | | [place] | | | [place] | | | [...] Urobilinoge | Normal | 0-1.0 mg/dL | [place] | | | n, Urine | | [...] + + | [facility] | [address] | [place] [address] | [phone] | | HOSPITAL LABORATORY | | | [...]
--- OUTSIDE RECORDS SUMMARY | ~2019-02-03 | XMS | Encounter Summary ---
Demographics + + + | Address | [address] | | | [place] [address] | + + + | Home Phone | | + + + | Preferred Language | Unknown | + + + | Marital Status | | + + + | Jew Affiliation | 1013 | + + + | Race | Unknown | + + + | Ethnic Group | Unknown | + + + Author + + + | Author | [facility] | | | and [place] | + + + | Organization | [facility] | | | [...] [address], [place] | | | | | [address] | | + + + + + Care Team Providers + +------+ + | Care Grades 1 Through 5 Teacher Name | Role | Phone | + +------+ + PCP | Unavailable | + +------+ + Encounter Details +--------+ + + + + | Date | Type | Department | Care Team | Description | +--------+ + + + + | 01/08/ | [facility] | [facility] | Reed Zhang MD | | | 2004 - | Encounter | SURGICAL ORTHO [address] | [address], | | | | | [address] | [address] | | | 01/09/ | | [place] | [address] | | | 2004 | | [address] | | | | | | [phone] | | | +--------+ + + + [...] + | SURGICAL PATHOLOGY | Routin | 01/08/2005 | | Results for this | | EXAM | e | 12:00 AM | | procedure are in the | | | | PDT | | results section. | + +--------+ + + + documented in this encounter Results Surgical Pathology Exam (01/08/2005 12:00 AM PDT) + + | Specimen | + + | | + + + + + | Narrative | Performed At | + + + | SPEC: [id number] RECD: 01/11/2005 09:27 STATUS: SOUT | [facility] | | REQ NUM: | [facility] | | EDELMIRA: 01/08/2005 00:[address]: Reed Zhang ENTERED: | HOSPITAL | | 01/11/2005 09:28 SP TYPE: SURGICAL OTHR DR: TISSUES: | LABORATORY | | Fallopian tube, NOS - RIGHT FALLOPIAN TUBE CLINICAL | | | HISTORY Right ectopic with hematoperitoneum | | | FINAL DIAGNOSIS RIGHT FALLOPIAN TUBE, EXCISION: - | | | BENIGN FALLOPIAN TUBE WITH IMMATURE CHORIONIC VILLI, ELEMENTS, | | | AND BLOOD, CONSISTENT WITH TUBAL ECTOPIC . | | | C2NR Dictated by: Monse Easton GROSS | | | EXAMINATION The specimen labeled and designated "Birkey - right | | | fallopian tube" consists of a 4.4 cm in length dusky mccullough-banda | | | fimbriated fallopian tube. It varies in diameter from 0.4 cm, near | | | the proximal margin, to 2.5 cm in the mid region. The outer surfaces | | | are roughened with scattered adhesions. Sectioning reveals a dilated | | | clot-filled lumen with a possible gestational sac up to 0.9 cm. No | | | parts or hydropic villi are identified. Utility Locate Technician | | | sections in (A1). pk/FM Dictated by: [email or web address] | | | MICROSCOPIC EXAMINATION Histologic sections of all submitted | | | blocks are examined by light microscopy. The microscopic findings, | | | together with the gross findings, support the pathologic diagnosis. | | | Dictated by: Monse Easton | | | | | | Signed By: Monse Easton 01/12/2005 | | | | | | | | + + + + + + + + | Performing | Address | City/State/Zipcode | Phone Number | | Organization | | | | + + + + + | [facility] | [address] [facility] | [place] [address] | | | [facility] | | | | | LABORATORY | | | | + + + + + | [facility] | | | | [facility] | | | | | LAB[facility]ATORY | | | | + + + + + documented in this encounter Visit Diagnoses Not on filedocumented in this encounter
--- OUTSIDE RECORDS SUMMARY | ~2019-02-03 | XMS | Encounter Summary ---
Demographics + + + | Address | [address] | | | [place] [address] | + + + | Home Phone | | + + + | Preferred Language | Unknown | + + + | Marital Status | | + + + | Gnosticist Affiliation | 1013 | + + + [...] [address] | | | | | [address] | | + + + + + Care Team Providers + +------+ + | Care Mini Baccarat Dealer Name | Role | Phone | + [...] [place], [place] | | | | | [address] | [address] | | | | | [phone] | [phone] | | | | | | | [...]
--- OUTSIDE RECORDS SUMMARY | ~2019-02-03 | XMS | Encounter Summary ---
Demographics + + + | Address | [address] | | | [place] [address] | + + + | Home Phone | | + + + | Preferred Language | Unknown | + + + | Marital Status | | + + + | Pentecostal Affiliation | 1013 | + + + | Race | Unknown | + + + | Ethnic Group | Unknown | + + + Author + + + | Author | [facility] | | | and [place] | + + + | Organization | [facility] | | | [...] [address], [place] | | | | | [address] | | + + + + + Care Team Providers + +------+ + | Care Quilt Stuffer Name | Role | Phone | + [...] | SR | | | | | [phone] | | | +--------+ + + + [...]
--- OUTSIDE RECORDS SUMMARY | ~2019-02-03 | XMS | Encounter Summary ---
Demographics + + + | Address | [address] | | | [place] [address] | + + + | Home Phone | | + + + | Preferred Language | Unknown | + + + | Marital Status | | + + + | Episcopal Affiliation | 1013 | + + + | Race | Unknown | + + + | Ethnic Group | Unknown | + + + Author + + + | Author | [facility] | | | and [place] | + + + | Organization | [facility] | | | and [...] [address] | | | | | [address] | | + + + + + Care Team Providers + +------+ + | Care Refractory Bricklayer Name | Role | Phone | + +------+ + PCP | Unavailable | + +------+ + Encounter Details +--------+ + + + + | Date | Type | Department | Care Team | Description | +--------+ + + + + | 02/06/ | Hospital | [facility] | Javid Marks | | | 2013 | Encounter | HOSPITAL OBSTETRICS | [address] | | | | | [address] | [address] | | | | | [place], [place] | [place] | | | | | [address] | [address] | | | | | [phone] | [phone] | | | | | | | [...]
--- OUTSIDE RECORDS SUMMARY | ~2019-02-03 | XMS | Encounter Summary ---
Demographics + + + | Address | [address] | | | [place] [address] | + + + | Home Phone | | + + + | Preferred Language | Unknown | + + + | Marital Status | | + + + | Episcopalian Affiliation | 1013 | + + + | Race | Unknown | + + + | Ethnic Group | Unknown | + + + Author + + + | Author | [facility] | | | and [place] | + + + | Organization | [facility] | | [...] [address] | | | | | [address] | | + + + + + Care Team Providers + +------+ + | Care Shear Operator Automatic Name | Role | Phone | + +------+ + PCP | Unavailable | + +------+ + Encounter Details +--------+ + + + + | Date | Type | Department | Care Team | Description | +--------+ + + + + | 09/28/ | Orders Only | [facility] | Gloria Cano | | | 2013 | | [facility] | [address] | | | | | CLINIC [address] | [address] | | | | | [address] [place], | [place], [place] | | | | | [place] [address] | [address] | | | | | [phone] | [phone] | | | | | | | [...] Provider LG - | | | [facility] [employer] /W Collected Date [id number] Received | [...] Specimen processed | | | successfully by [employer] Slide Digital Analyst, [employer], | | | [employer]. History: [id number] 04/25/02 Within | | | normal limits. [id number] 03/05/02 Within normal | | | limits. [id number] 05/05/01 Within normal limits. | | | [id number] 01/02/01 Within normal limits. | | | [id number] 09/23/99 Within normal limits. Disclaimer | | [...] | | Gloria Cano M.D. @W/- X/, [facility] Accession: | | | [id number] # SIGNED BY GLORIA CANO MD, (URBAN)10/04/2013 [...]
--- OUTSIDE RECORDS SUMMARY | ~2019-02-03 | XMS | Encounter Summary ---
Demographics + + + | Address | [address] | | | [place] [address] | + + + | Home Phone | | + + + | Preferred Language | Unknown | + + + | Marital Status | | + + + | Jehovah'S Witness Affiliation | 1013 | + + + | Race | Unknown | + + + | Ethnic Group | Unknown | + + + Author + + + | Author | [facility] | | | and [place] | + + + | Organization | [facility] | | | and [...] [address] [place] | | | | | [address] | | + + + + + Care Team Providers + +------+ + | Care Chartered Financial Analyst Name | Role | Phone | + +------+ + PCP | Unavailable | + +------+ + Encounter Details +--------+ + + + + | Date | Type | Department | Care Team | Description | +--------+ + + + + | 07/10/ | Hospital | [facility] | Javid Marks | | | 2013 | Encounter | HOSPITAL GENERIC OP | [address] | | | | | CONVERSION | [address] | | | | | DEPARTMENT [address] | [place] | | | | | [address] [place] | [address] | | | | | [place] | [phone] | | | | | [address] | | | | | | [phone] | | | +--------+ + + + [...] | + +--------+ + + + | SEDIMENTATION RATE | Routin | 07/10/2013 | | Results for this | | | e | 10:47 AM | | procedure are in the | | | | PDT | | results section. | + +--------+ + + + documented in this encounter Results Sedimentation Rate (07/10/2013 10:47 AM PDT) + +-------+ + + + | Component | Value | Ref Range | Performed | Pathologist | | | | | At | Signature | + +-------+ + + + | ESR | 13 | <=20 mm/h | EXTERNAL | | | | | [...]
--- OUTSIDE RECORDS SUMMARY | ~2019-02-03 | XMS | Encounter Summary ---
Demographics + + + | Address | [address] | | | [place] [address] | + + + | Home Phone | | + + + | Preferred Language | Unknown | + + + | Marital Status | | + + + | Denominational Affiliation | 1013 | + + + | Race | Unknown | + + + | Ethnic Group | Unknown | + + + Author + + + | Author | [facility] | | | and [place] | + + + | Organization | [facility] | | | [...] [address] | | | | | [address] | | + + + + + Care Team Providers + +------+ + | Care Streaming Media Specialist Name | Role | Phone | + +------+ + PCP | Unavailable | + +------+ + Encounter Details +--------+ + + + + | Date | Type | Department | Care Team | Description | +--------+ + + + + | 09/06/ | Hospital | [facility] | Javid Marks | | | 2013 | Encounter | HOSPITAL XRAY [address] | [address] | | | | | [address] | [address] | | | | | [place] | [place], [place] | | | | | [address] | [address] | | | | | [phone] | [phone] | | | | | | | [...]
--- OUTSIDE RECORDS SUMMARY | ~2019-02-03 | XMS | Encounter Summary ---
Demographics + + + | Address | [address] | | | [place] [address] | + + + | Home Phone | | + + + | Preferred Language | Unknown | + + + | Marital Status | | + + + | Orthodox Affiliation | 1013 | + + + | Race | Unknown | + + + | Ethnic Group | Unknown | + + + Author + + + | Author | [facility] | | | and [place] | + + + | Organization | [facility] | | | and [...] [address] | | | | | [address] | | + + + + + Care Team Providers + +------+ + | Care Cooker Soda Name | Role | Phone | + [...] [place], [place] | | | | | [address] | [address] | | | | | [phone] | [phone] | | | | | | | [...]
--- OUTSIDE RECORDS SUMMARY | ~2019-02-03 | XMS | Encounter Summary ---
Demographics + + + | Address | [address] | | | [place] [address] | + + + | Home Phone | | + + + | Preferred Language | Unknown | + + + | Marital Status | | + + + | Caodaism Affiliation | 1013 | + + + | Race | Unknown | + + + | Ethnic Group | Unknown | + + + Author + + + | Author | [facility] | | | and [place] | + + + | Organization | [facility] | | | [...] [address] | | | | | [address] | | + + + + + Care Team Providers + +------+ + | Care Benefits Coordinator Name | Role | Phone | [...] [place], [place] | | | | | [address] | [address] | | | | | [phone] | [phone] | | | | | | | [...]
--- OUTSIDE RECORDS SUMMARY | ~2019-02-03 | XMS | Encounter Summary ---
Demographics + + + | Address | [address] | | | [place] [address] | + + + | Home Phone | | + + + | Preferred Language | Unknown | + + + | Marital Status | | + + + | Restorationism Affiliation | 1013 | + + + | Race | Unknown | + + + | Ethnic Group | Unknown | + + + Author + + + | Author | [facility] | | | and [place] | + + + | Organization | [facility] | | | and [...] [address], [place] | | | | | [address] | | + + + + + Care Team Providers + +------+ + | Care Tmr Teacher Name | Role | Phone | [...] Encounter | [facility] | [address] | | | | | [address] | [place], [place] | | | | | [address] | [address] | | | | | [place] | | | | | | [address] | | | | | | [phone] | | | +--------+ + + + [...]
--- OUTSIDE RECORDS SUMMARY | ~2019-02-03 | XMS | Encounter Summary ---
Demographics + + + | Address | [address] | | | [place] [address] | + + + | Home Phone | | + + + | Preferred Language | Unknown | + + + | Marital Status | | + + + | Tenriism Affiliation | 1013 | + + + [...] [address], [place] | | | | | [address] | | + + + + + Care Team Providers + +------+ + | Care Fixed Capital Clerk Name | Role | Phone | + +------+ + PCP | Unavailable | + +------+ + Encounter Details +--------+ + + + + | Date | Type | Department | Care Team | Description | +--------+ + + + + | 01/08/ | [facility] | [facility] | Reed Zhang MD | | | 2004 - | Encounter | SURGICAL ORTHO [address] | [address], | | | | | [address] | [address] | | | 01/09/ | | [place] | [address] | | | 2004 | | [address] | | | | | | [phone] | | | +--------+ + + + [...] | parts or hydropic villi are identified. Staff Weapons Officer | | | sections in (A1). pk/FM [...] + + + | [facility] | [address] [facility] | [place] [address] | | | [facility] | | [...]
--- OUTSIDE RECORDS SUMMARY | ~2019-02-03 | XMS | Encounter Summary ---
Demographics + + + | Address | [address] | | | [place] [address] | + + + | Home Phone | | + + + | Preferred Language | Unknown | + + + | Marital Status | | + + + | Yazdanism Affiliation | 1013 | + + + [...] [place], [place] | | | | | [address] | | + + + + + Care Team Providers + +------+ + | Care Nurse Practitioner Home Assessments Name | Role | Phone | + +------+ + PCP | Unavailable | + +------+ + Encounter Details +--------+ + + + + | Date | Type | Department | Care Team | Description | +--------+ + + + + | 07/26/ | [facility] | [facility] | Teofilo Lamb MD | | | 2010 | Encounter | FAMILY EMERGENCY | [address] | | | | | [address] | [place], [place] | | | | | [place] | [address] | | | | | [place] | | | | | | [address] | | | | | | [phone] | | | +--------+ + + + [...] | + +--------+ + + + | BASIC METABOLIC | Routin | 07/26/2010 | | Results for this | | PANEL (NOT ORD) | e | 6:48 PM | | procedure are in the | | | | PDT | | results section. | + +--------+ + + + | CBC WITH | Routin | 07/26/2010 | | Results for this | | DIFFERENTIAL | e | 6:48 PM | | procedure are in the | | | | PDT | | results section. | + +--------+ + + + | TSH | Routin | 07/26/2010 | | Results for this | | | e | 6:48 PM | | procedure are in the | | | | PDT | | results section. | + +--------+ + + + documented in this encounter Results Basic Metabolic Panel (07/26/2010 6:48 PM PDT) + +-------+ + + + | Component | Value | Ref Range | Performed | Pathologist | | | | | At | Signature | + +-------+ + + + | Na | 140 | 135 - 146 | [facility] | | | | | mmol/L | [facility] | | | [facility] | | + +-------+ + + + | K | 3.9 | 3.6 - 5.2 | [facility] | | | | | mmol/L | [facility] | [facility] | | + +-------+ + + + | Cl | 107 | 98 - 109 mmol/L | [facility] | | | | [facility] | | + +-------+ + + + | CO2 | 27 | 21 - 32 mmol/L | [facility] | | | [facility] | | + +-------+ + + + | Glucose | 75 | 65 - 99 mg/dL | [facility] | | | [facility] | | + +-------+ + + + | BUN | 10 | 7 - 23 mg/dL | [facility] | | | | [facility] | [facility] | | + +-------+ + + + | Creatinine | 0.76 | 0.60 - 1.20 | [facility] | | | | | mg/dL | [facility] | | [facility] | | + +-------+ + + + | Calcium | 9.3 | 8.5 - 10.5 | [facility] | | | | | mg/dL | [facility] | | | [facility] | | + +-------+ + + + | Anion Gap | 6 | 5 - 16 mmol/L | [facility] | | | | | | [facility] | [facility] | | | | | | [facility] | | + +-------+ + + + + + | Specimen | + + | | + + + + + + + | Performing | Address | City/State/Zipcode | Phone Number | | Organization | | | | + + + + + | [facility] | [address] | [place] [address] | | | [facility] | | | | | LAB[facility]ATORY | | | | + + + + + | [facility] | | | | | [facility] | | | | | [facility] | | | | + + + + + TSH (07/26/2010 6:48 PM PDT) + +-------+ + + + | Component | Value | Ref Range | Performed | Pathologist | | | | | At | Signature | + +-------+ + + + | TSH | 1.03 | 0.34 - 4.82 | [facility] | | | | | uIU/mL | [facility] | | | | | [facility] | | + +-------+ + + + + + | Specimen | + + | | + + + + + + + | Performing | Address | City/State/Zipcode | Phone Number | | Organization | | | | + + + + + | [facility] | [address] | [place] [address] | | | [facility] | | | | | LAB[facility]ATORY | | | | + + + + + | [facility] | | | | | [facility] | | | | | LABORATORY | | | | + + + + + CBC with Differential (07/26/2010 6:48 PM PDT) + + + + + + | Component | Value | Ref Range | Performed | Pathologist | | | | | At | Signature | + + + + + + | WBC | 8.6 | 4.0 - 11.0 K/uL | [facility] | [facility] | | + + + + + + | RBC | 4.63 | 3.80 - 5.20 | [facility] | | | | | M/uL | [facility] | | | | | [facility] | | + + + + + + | Hemoglobin | 14.1 | 11.6 - 15.5 | [facility] | | | | | g/dL | [facility] | | | | | [facility] | | + + + + + + | Hematocrit | 42.8 | 35.0 - 46.0 % | [facility] | | | [facility] | | + + + + + + | MCV | 92.5 | 80.0 - 100.0 fL | [facility] | | | [facility] | | + + + + + + | MCH | 30.5 | 27.0 - 34.0 pg | [facility] | | | | [facility] | [facility] | | [facility] | | + + + + + + | MCHC | 33.0 | 32.0 - 35.5 | [facility] | | | | | g/dL | [facility] | | | [facility] | | + + + + + + | RDW-CV | 13.3 | 11.0 - 15.0 % | [facility] | | | | [facility] | | | | | | [facility] | | + + + + + + | Platelet | 223 | 150 - 400 K/uL | [facility] | | | Count | | | [facility] | [facility] | [facility] | | + + + + + + | Differentia | Automated | | [facility] | | | l Type | | [facility] | | | | | [facility] | | + + + + + + | % | 50.1 | 40.0 - 80.0 % | [facility] | | | Neutrophils | | | [facility] | | | | | | [facility] | | + + + + + + | % | 36.9 | 15.0 - 45.0 % | [facility] | | | Lymphocytes | | | [facility] | | | | | | [facility] | | + + + + + + | % Monocytes | 10.6 | 0.0 - 12.0 % | [facility] | | | | | | [facility] | | | | | | [facility] | | + + + + + + | % | 2.1 | 0 - 7 % | [facility] | | | Eosinophils | | | [facility] | | | | | | [facility] | | + + + + + + | % Basophils | 0.3 | 0 - 2 % | [facility] | | | | [facility] | | [facility] | | | [facility] | | + + + + + + | Absolute | 4.30 | 2.0 - 7.3 K/uL | [facility] | | | Neutrophils | | | [facility] | | | | | [facility] | | + + + + + + | Absolute | 3.20 | 1.0 - 3.4 K/uL | [facility] | | | Lymphocytes | | | [facility] | | | | | | [facility] | | + + + + + + | Absolute | 0.90 (H) | 0.0 - 0.8 K/uL | [facility] | | | Monocytes | | | [facility] | | | | | | [facility] | | + + + + + + | Absolute | 0.20 | 0.0 - 0.5 K/uL | [facility] | | | Eosinophils | | | [facility] | | | | | | [facility] | | + + + + + + | Absolute | 0.00 | 0.0 - 0.1 K/uL | [facility] | | | Basophils | | | [facility] | | | | | | [facility] | | + + + + + + + + | Specimen | + + | | + + + + + + + | Performing | Address | City/State/Zipcode | Phone Number | | Organization | | | | + + + + + | [facility] | [address] | [place] [address] | | | [facility] | | | | | LABORATORY | | | | + + + + + | [facility] | | | | | [facility] | | | | | LABORATORY | | | | + + + + + documented in this encounter Visit Diagnoses Not on filedocumented in this encounter"
--- OUTSIDE RECORDS SUMMARY | ~2019-02-03 | XMS | Encounter Summary ---
Demographics + + + | Address | [address] | | | [place] [address] | + + + | Home Phone | | + + + | Preferred Language | Unknown | + + + | Marital Status | | + + + | Rastafari Affiliation | 1013 | + + + | Race | Unknown | + + + | Ethnic Group | Unknown | + + + Author + + + | Author | [facility] | | | and [place] | + + + | Organization | [facility] | | | and [...] [address] [place] | | | | | [address] | | + + + + + Care Team Providers + +------+ + | Care Driver Material Handler Name | Role | Phone | + [...] | | | [address] [place] | [address] | | | | | [place] | [phone] | | | | | [address] | | | | | | [phone] | | | +--------+ + + + [...]
--- OUTSIDE RECORDS SUMMARY | ~2019-02-03 | XMS | Encounter Summary ---
Demographics + + + | Address | [address] | | | [place] [address] | + + + | Home Phone | | + + + | Preferred Language | Unknown | + + + | Marital Status | | + + + | Baptism Affiliation | 1013 | + + + | Race | Unknown | + + + | Ethnic Group | Unknown | + + + Author + + + | Author | [facility] | | | and [place] | + + + | Organization | [facility] | | | and [place] | + + + | Address | Unknown | + + + | Phone | Unavailable | + + + Support + + + + + | Name | Relationship | Address | Phone | + + + + + | Jozef Lrener | ECON | [address] | | | | [address] [place] | | | | | [address] | | + + + + + Care Team Providers + +------+ + | Care Cattle Producers Name | Role | Phone | + [...] [place], [place] | | | | | [address] | [address] | | | | | [phone] | [phone] | | | | | | | [...]
--- OUTSIDE RECORDS SUMMARY | ~2019-02-03 | XMS | Encounter Summary ---
Demographics + + + | Address | [address] | | | [place] [address] | + + + | Home Phone | | + + + | Preferred Language | Unknown | + + + | Marital Status | | + + + | Oriental Orthodox Affiliation | 1013 | + + + | Race | Unknown | + + + | Ethnic Group | Unknown | + + + Author + + + | Author | [facility] | | | and [place] | + + + | Organization | [facility] | | | [...] [address], [place] | | | | | [address] | | + + + + + Care Team Providers + +------+ + | Care Wall Taper Helper Name | Role | Phone | + +------+ + PCP | Unavailable | + +------+ + Encounter Details +--------+ + + + + | Date | Type | Department | Care Team | Description | +--------+ + + + + | 07/26/ | [facility] | [facility] | Teofilo Lamb MD | | | 2010 | Encounter | FAMILY EMERGENCY | [address] | | | | | [place] [address] | [place], [place] | | | | | [place] | [address] | | | | | [place] | | | | | | [address] | | | | | | [phone] | | | +--------+ + + + [...] + | [facility] | [address] [facility] [address] [address] | [place] [address] | | | [facility] | | [...] + | [facility] | [address] | [place] [address] | | | [facility] | | | | | LABORATORY | | | | + + + + + | [facility] | | | | | [facility] | | | | | LABORATORY [...] + + + | [facility] | [address] | [place] [address] | | | [facility] | | | | | LABORATORY | | | | + + + + + | [facility] | | | | | [facility] | | | | | LABORATORY | | | | + + + + + documented in this encounter Visit Diagnoses Not on filedocumented in this encounter"
--- OUTSIDE RECORDS SUMMARY | ~2019-02-03 | XMS | Encounter Summary ---
Demographics + + + | Address | [address] | | | [place] [address] | + + + | Home Phone | | + + + | Preferred Language | Unknown | + + + | Marital Status | | + + + | Congregation Affiliation | 1013 | + + + | Race | Unknown | + + + | Ethnic Group | Unknown | + + + Author + + + | Author | [facility] | | | and [place] | + + + | Organization | [facility] | | | [...] [address] [place] | | | | | [address] | | + + + + + Care Team Providers + +------+ + | Care Philosophy Lecturer Name | Role | Phone | + +------+ + PCP | Unavailable | + +------+ + Encounter Details +--------+ + + + + | Date | Type | Department | Care Team | Description | +--------+ + + + + | 04/14/ | [facility] | [place] | Natasha Bob | | | 2016 | Encounter | HOSPITAL NURSERY | [address] | | | | | [address] | [place] | | | | | [place] | [address] | | | | | [address] | [phone] | | | | | [phone] | | | +--------+ + + + [...]
--- OUTSIDE RECORDS SUMMARY | ~2019-02-03 | XMS | Encounter Summary ---
Demographics + + + | Address | [address] | | | [place] [address] | + + + | Home Phone | | + + + | Preferred Language | Unknown | + + + | Marital Status | | + + + | Adventism Affiliation | 1013 | + + + | Race | Unknown | + + + | Ethnic Group | Unknown | + + + Author + + + | Author | [facility] | | | and [place] | + + + | Organization | [facility] | | [...] [address], [place] | | | | | [address] | | + + + + + Care Team Providers + +------+ + | Care Special Equipment Technician Name | Role | Phone | [...] | | | [address] [place] | [phone] | | | | | [address] | | | | | | [phone] | | | +--------+ + + + [...] + + | SURGICAL PATHOLOGY REPORT | [facility] | | Date Taken: 06/04/2003 Date Received: [...] in | | | a single block. (MD) 1: [address] | | | [place] [address] or | | | Testing performed at: [facility] | | | Laboratory Ole Shafer M.D., Director [address] [place] [address] [address] | | | [address] [place] [address] | | + + + + + + + + | Performing | Address | City/State/Zipcode | Phone Number | | Organization | | | | + + + + + | [facility] | [address] | [place] [address] | | | [facility] | | | | | LABORATORY | | | | + + + + + | [place] | | | | + + + + + documented in this encounter Visit Diagnoses Not on filedocumented in this encounter
--- OUTSIDE RECORDS SUMMARY | ~2019-02-03 | XMS | Encounter Summary ---
Demographics + + + | Address | [address] | | | [place] [address] | + + + | Home Phone | | + + + | Preferred Language | Unknown | + + + | Marital Status | | + + + | Congregation Affiliation | 1013 | + + + | Race | Unknown | + + + | Ethnic Group | Unknown | + + + Author + + + | Author | [facility] | | | and [place] | + + + | Organization | [facility] | | [...] [address] [place] | | | | | [address] | | + + + + + Care Team Providers + +------+ + | Care Computer Game Programmer Name | Role | Phone | + [...] [place] | | | | | | [address] | | | | | | [phone] | | | +--------+ + + + [...] G?MRN: | | | | | | [id number] | | | [id number] | | | ecurit | | | [...]
--- OUTSIDE RECORDS SUMMARY | ~2019-02-03 | XMS | Encounter Summary ---
Demographics + + + | Address | [address] | | | [place] [address] | + + + | Home Phone | | + + + | Preferred Language | Unknown | + + + | Marital Status | | + + + | Sikhism Affiliation | 1013 | + + + | Race | Unknown | + + + | Ethnic Group | Unknown | + + + Author + + + | Author | [facility] | | | and [place] | + + + | Organization | [facility] | | [...] [address] [place] | | | | | [address] | | + + + + + Care Team Providers + +------+ + | Care Industrial Sales Representative Name | Role | Phone | + +------+ + PCP | Unavailable | + +------+ + Encounter Details +--------+ + + + + | Date | Type | Department | Care Team | Description | +--------+ + + + + | 10/11/ | [facility] | [facility] | Jerrell Ivan | | | 2002 | Encounter | FAMILY LABOR AND | MD | | | | | [address] | | | | | | [place] | | | | | | [place] | | | | | | [address] | | | | | | [phone] | | | +--------+ + + + [...]
--- OUTSIDE RECORDS SUMMARY | ~2019-02-03 | XMS | Encounter Summary ---
Demographics + + + | Address | [address] | | | [place] [address] | + + + | Home Phone | | + + + | Preferred Language | Unknown | + + + | Marital Status | | + + + | Christian Affiliation | 1013 | + + + | Race | Unknown | + + + | Ethnic Group | Unknown | + + + Author + + + | Author | [facility] | | | and [place] | + + + | Organization | [facility] | | | and [...] [address] | | | | | [address] | | + + + + + Care Team Providers + +------+ + | Care Superintendent Factory Name | Role | Phone | + [...] [place], [place] | | | | | [address] | [address] | | | | | [phone] | [phone] | | | | | | | [...]
--- OUTSIDE RECORDS SUMMARY | ~2019-02-03 | XMS | Encounter Summary ---
Demographics + + + | Address | [address] | | | [place] [address] | + + + | Home Phone | | + + + | Preferred Language | Unknown | + + + | Marital Status | | + + + | Protestant Affiliation | 1013 | + + + | Race | Unknown | + + + | Ethnic Group | Unknown | + + + Author + + + | Author | [facility] | | | and [place] | + + + | Organization | [facility] | | [...] [address], [place] | | | | | [address] | | + + + + + Care Team Providers + +------+ + | Care Outdoor Adventure Instructor Name | Role | Phone | + +------+ + PCP | Unavailable | + +------+ + Encounter Details +--------+ + + + + | Date | Type | Department | Care Team | Description | +--------+ + + + + | 02/28/ | [facility] | [facility] | Bandar Bajwa MD | | | 2002 | Encounter | FAMILY EMERGENCY | [address] | | | | | [place] [address] | [place], [place] | | | | | [place] | [address] | | | | | [place] | | | | | | [address] | | | | | | [phone] | | | +--------+ + + + [...]
--- OUTSIDE RECORDS SUMMARY | ~2019-02-03 | XMS | Clinical Summary ---
Demographics + + + | Address | [address] | | | [place] [address] | + + + | Home Phone [...] [address], [place] | | | | | [address] | | + + + + + Care Team Providers + +------+ + | Care Senior Designer/Art Director Name | Role | Phone | + [...] +---------+------+ | [place] | [place] | [id number] | 08/13/19 | [phone] | | PPO [...] | 1986 | [phone] | [place] [address] | | | matthias | | | 6 (Home) | | + +--------+ +--------+ + + Advance Directives + + + + + | Type | Date Recorded | Patient | Explanation | | | | Accident Investigator | | + + + + + | Power of | | | | | Plug Making Operator | | | | + + + + + | Advance | 10/20/2017 7:46 | | | | Directive | PM | | | + + + + +
--- OUTSIDE RECORDS SUMMARY | ~2019-02-03 | XMS | Encounter Summary ---
Demographics + + + | Address | [address] | | | [place] [address] | + + + | Home Phone [...] [address] | | | | | [address] | | + + + + + Care Team Providers + +------+ + | Care Photographer Name | Role | Phone | + +------+ + PCP | Unavailable | + +------+ + Encounter Details +--------+ + + + + | Date | Type | Department | Care Team | Description | +--------+ + + + + | 08/13/ | Hospital | [place] [facility] | Javid Marks | | | 2013 | Encounter | HOSPITAL OBSTETRICS | [address] | | | | | [address] | [address] | | | | | [place], [place] | [place], [place] | | | | | [address] | [address] | | | | | [phone] | [phone] | | | | | | | [...]
--- OUTSIDE RECORDS SUMMARY | ~2019-02-03 | XMS | Encounter Summary ---
Demographics + + + | Address | [address] | | | [place] [address] | + + + | Home Phone | | + + + | Preferred Language | Unknown | + + + | Marital Status | | + + + | Yarsani Affiliation | 1013 | + + + | Race | Unknown | + + + | Ethnic Group | Unknown | + + + Author + + + | Author | [facility] | | | and [place] | + + + | Organization | [facility] | | [...] [address] | | | | | [address] | | + + + + + Care Team Providers + +------+ + | Care Benefits Technician Name | Role | Phone | [...] [place], [place] | | | | | [address] | [address] | | | | | [phone] | [phone] | | | | | | | [...]
--- OUTSIDE RECORDS SUMMARY | ~2019-02-03 | XMS | Encounter Summary ---
Demographics + + + | Address | [address] | | | [place] [address] | + + + | Home Phone | | + + + | Preferred Language | Unknown | + + + | Marital Status | | + + + | Rastafari Affiliation | 1013 | + + + | Race | Unknown | + + + | Ethnic Group | Unknown | + + + Author + + + | Author | [facility] | | | and [place] | + + + | Organization | [facility] | | | and [place] | + + + | Address | Unknown | + + + | Phone | Unavailable | + + + Support + + + + + | Name | Relationship | Address | Phone | + + + + + | Jozef Lenrer | ECON | [address] | | | | [address] | | | | | [address] | | + + + + + Care Team Providers + +------+ + | Care Boat Canvas Maker Installer Name | Role | Phone | + [...] [place], [place] | | | | | [address] | [address] | | | | | [phone] | [phone] | | | | | | | [...]
--- OUTSIDE RECORDS SUMMARY | ~2019-02-03 | XMS | Encounter Summary ---
Demographics + + + | Address | [address] | | | [place] [address] | + + + | Home Phone | | + + + | Preferred Language | Unknown | + + + | Marital Status | | + + + | Quaker Affiliation | 1013 | + + + | Race | Unknown | + + + | Ethnic Group | Unknown | + + + Author + + + | Author | [facility] | | | and [place] | + + + | Organization | [facility] | | | [...] [address], [place] | | | | | [address] | | + + + + + Care Team Providers + +------+ + | Care Care Management Coordinator Name | Role | Phone | [...] [address] | | | | | [address] | [place] [address] | | | 06/[birth year]/ | | [place] | [phone] | | | 2012 | | [place] | | | | | | [address] | | | | | | [phone] | | | +--------+ + + + [...]
--- OUTSIDE RECORDS SUMMARY | ~2019-02-03 | XMS | Encounter Summary ---
Demographics + + + | Address | [address] | | | [place] [address] | + + + | Home Phone | | + + + | Preferred Language | Unknown | + + + | Marital Status | | + + + | Islam Affiliation | 1013 | + + + | Race | Unknown | + + + | Ethnic Group | Unknown | + + + Author + + + | Author | [facility] | | | and [place] | + + + | Organization | [facility] | | | and [place] | + [...] [address], [place] | | | | | [address] | | + + + + + Care Team Providers + +------+ + | Care Supervisor Hospitality House Name | Role | Phone | + +------+ + PCP | Unavailable | + +------+ + Encounter Details +--------+ + + + + | Date | Type | Department | Care Team | Description | +--------+ + + + + | 06/27/ | [facility] | [facility] | Bandar Bajwa MD | | | 2012 | Encounter | FAMILY EMERGENCY | [address] | | | | | [address] | [place], [place] | | | | | [place] | [address] | | | | | [place] | | | | | | [address] | | | | | | [phone] | | | +--------+ + + + [...]
--- OUTSIDE RECORDS SUMMARY | ~2019-02-03 | XMS | Encounter Summary ---
Demographics + + + | Address | [address] | | | [place] [address] | + + + | Home Phone | | + + + | Preferred Language | Unknown | + + + | Marital Status | | + + + | Shinto Affiliation | 1013 | + + + | Race | Unknown | + + + | Ethnic Group | Unknown | + + + Author + + + | Author | [facility] | | | and [place] | + + + | Organization | [facility] | | [...] [address], [place] | | | | | [address] | | + + + + + Care Team Providers + +------+ + | Care Senior Clinical Study Manager Name | Role | Phone | + +------+ + PCP | Unavailable | + +------+ + Encounter Details +--------+ + + + + | Date | Type | Department | Care Team | Description | +--------+ + + + + | 02/28/ | [facility] | [facility] | Bandar Bajwa MD | | | 2002 | Encounter | FAMILY EMERGENCY | [address] | | | | | [place] [address] | [place], [place] | | | | | [place] | [address] | | | | | [place] | | | | | | [address] | | | | | | [phone] | | | +--------+ + + + [...]
--- OUTSIDE RECORDS SUMMARY | ~2019-02-03 | XMS | Encounter Summary ---
Demographics + + + | Address | [address] | | | [place] [address] | + + + | Home Phone | | + + + | Preferred Language | Unknown | + + + | Marital Status | | + + + | Pentecostal Affiliation | 1013 | + + + | Race | Unknown | + + + | Ethnic Group | Unknown | + + + Author + + + | Author | [facility] | | | and [place] | + + + | Organization | [facility] | | | [...] [id number] | | | | | [address] | | + + + + + Care Team Providers + +------+ + | Care School Bus Monitor Name | Role | Phone | + [...] [place], [place] | | | | | [address] | [address] | | | | | [phone] | [phone] | | | | | | | [...]
--- OUTSIDE RECORDS SUMMARY | ~2019-02-03 | XMS | Encounter Summary ---
Demographics + + + | Address | [address] | | | [place] [address] | + + + | Home Phone | | + + + | Preferred Language | Unknown | + + + | Marital Status | | + + + | Holiness Affiliation | 1013 | + + + [...] [id number] | | | | | [address] | | + + + + + Care Team Providers + +------+ + | Care Fire Marshal Name | Role | Phone | + [...] [place], [place] | | | | | [address] | [address] | | | | | [phone] | [phone] | | | | | | | [...]
--- OUTSIDE RECORDS SUMMARY | ~2019-02-03 | XMS | Encounter Summary ---
Demographics + + + | Address | [address] | | | [place] [address] | + + + | Home Phone | | + + + | Preferred Language | Unknown | + + + | Marital Status | | + + + | Cheondoism Affiliation | 1013 | + + + | Race | Unknown | + + + | Ethnic Group | Unknown | + + + Author + + + | Author | [facility] | | | and [place] | + + + | Organization | [facility] | | | [...] [id number] | | | | | [address] | | + + + + + Care Team Providers + +------+ + | Care Facilities Custodian Name | Role | Phone | + [...] [place], [place] | | | | | [address] | [address] | | | | | [phone] | [phone] | | | | | | | [...]
--- OUTSIDE RECORDS SUMMARY | ~2019-02-03 | XMS | Encounter Summary ---
Demographics + + + | Address | [address] | | | [place] [address] | + + + | Home Phone | | + + + | Preferred Language | Unknown | + + + | Marital Status | | + + + | Mu-Ism Affiliation | 1013 | + + + | Race | Unknown | + + + | Ethnic Group | Unknown | + + + Author + + + | Author | [facility] | | | and [place] | + + + | Organization | [facility] | | | [...] [id number] [place] | | | | | [address] | | + + + + + Care Team Providers + +------+ + | Care Vocational Coordinator Name | Role | Phone | [...] | | | 2004 | | [place] | | | | | | [address] | | | | | | [phone] | | | +--------+ + + + [...]
[~2019-02-03 09:36] MED LIST: BACTRIM 400-801 EACH PO; PROZAC20 MG
[2019-02-03] MEDS ORDERED: PROMETHAZINE HC25 M1 PO (11:02)
== END 2019-02-03 11:13 | disposition home or self-care (01) ==
LOC: ED 09:36
DX: J10.1 Influenza due to other identified influenza virus with other respiratory manifestations (principal); F17.200 Nicotine dependence, unspecified, uncomplicated; Z88.8 Allergy status to other drugs, medicaments and biological substances; Z79.899 Other long term (current) drug therapy
CPT/HCPCS: 87502; 96374; 96375; 99284-25; 99406; J1885; J2765; J7030

== ENCOUNTER → 2019-12-07 | Emergency (ER) | payer OTHER ==
[~2019-12-07] VITALS: Ht 162.6 cm; Wt 78.5 kg
[~2019-12-07] MED LIST changes: +PROMETHAZINE HC25 M1 PO
== END ==
LOC: ED 14:44
DX: J06.9 Acute upper respiratory infection, unspecified (principal); F17.200 Nicotine dependence, unspecified, uncomplicated; Z88.1 Allergy status to other antibiotic agents; Z79.899 Other long term (current) drug therapy
CPT/HCPCS: 71045; 99284-25